=== PATIENT | male | born 1975 | race Caucasian/White ===

== ENCOUNTER 2017-01-18 10:47 | Emergency (ER) | payer OTHER ==
[2017-01-18 11:31] LABS: HEMOGLOBIN 12.3 gm/dl (14.0-17.5); RED BLOOD COUNT 4.06 M/UL (4.20-5.50); WHITE BLOOD COUNT 9.4 K/UL (4.5-11.0)
[2017-01-18 11:32] LABS: BUN/CREATININE RATIO 15 (0-10)
== END 2017-01-18 11:07 ==
LOC: ER1 10:47
PROVIDERS: Emergency Medicine
DX: S21.44 Puncture wound with foreign body of back wall of thorax with penetration into thoracic cavity (principal); W33.02XA Accidental discharge of hunting rifle, initial encounter; Y92.410 Unspecified street and highway as the place of occurrence of the external cause; Z23 Encounter for immunization
CPT/HCPCS: 36415; 71010; 74000; 80053; 83690; 85025; 85610; 85730; 90471; 90715; 96374; 99285; G0480; J0690; J7050